=== PATIENT | female | born 1980 | race Two or more races ===

== ENCOUNTER 2016-12-11 00:30 | Emergency (ER) | payer SELFPAY ==
--- NOTE | 2016-12-11 00:50 | NUR ---
PT ADVISED FEELING BETTER, STATES SHE IS LEAVING WITH COUSIN WHO BOUGHT HER IN, NO RESP DISTRESS NOTED OR REPORTED, PT SEEN PLAYING ON HER PHONE, SPEAKING WITH COUSIN, ABLE TO MAKE NEEDS KNOWN.... PT WALKED OUT OF ER UNASSISTED WITHOUT BEING TRIAGED...
== END 2016-12-11 01:09 | disposition left against medical advice (07) ==
LOC: ER 00:41
DX: Z53.21 Procedure and treatment not carried out due to patient leaving prior to being seen by health care provider (principal)